=== PATIENT | female | born 1930 | race Caucasian/White ===

== ENCOUNTER → 2016-11-24 | Day surgery (SDC) | payer OTHER ==
[~2016-11-24] MED LIST: ACETAMINOPHEN 1000 MG/100 ML VIAL IV ONE; BUPIVACAINE/EPINEPHRINE 0.25% 50 ML VIAL ONE; CALC500T35 PO; IBUP-232 PO; LACTATED RINGER'S 1000 ML INJ 1,000 ML ONE; LIDOCAINE 1%/EPINEPHrine 1:100,000 SOLN 20 ML VIAL ONE; MEPERIDINE HCL 25 MG/ML VIAL ONE; MIDAZOLAM HCL 2 MG/2 ML VIAL ONE; OCUV PO; ONDANSETRON HCL 4 MG/2 ML VIAL IV PUSH ONE; POTA75TA2 PO; PROPOFOL 200 MG/20 ML AMP IV ONE; ST J81CH PO; ceFAZolin INJ 1,000 MG VIAL ONE
--- NOTE | 2016-11-24 15:30 | TN ---
cc: NIKOLAS CAMARILLO DATE OF SURGERY: 11/24/2016 PREOPERATIVE DIAGNOSIS 1. Incisional hernia in the subxiphoid area. 2. Left inguinal hernia. POSTOPERATIVE DIAGNOSIS 1. Incisional hernia in the subxiphoid area X3 2. Left inguinal hernia. 3. Small incisional hernias in the subxiphoid area x3 PROCEDURE 1. Repair of three incisional hernias x3 in the subxiphoid area. 2. Repair left inguinal hernia, Annel technique. ANESTHESIA General. SURGEON Dr. Camraillo. INDICATION This is a pleasant 86-year-old female who had a fairly symptomatic left inguinal hernia and also symptomatic subxiphoid hernia from previous surgery. Plans were made for above. PROCEDURE The patient was taken to the operating room and placed in the supine position. After anesthesia her abdomen and groin was prepped with Betadine. First we direct our attention to the subxiphoid area. She has a scar from midline incision, elliptical incision is made to remove the scar. We dissect down to subcutaneous tissue identifying about a 1 cm defect in the fascia, then just superior to this is another 1/2 cm defect and then a third defect out laterally in the subcostal area. All three of these defects are treated similarly. She did not want any mesh placed. We dissect circumferentially around identifying the fascial edges and reapproximated with a 0 Ethibond. We first do the two midline incisional hernias and these were done with 0 Ethibond, approximately five of them, and then the right subcostal we reapproximated the defect with 0 Ethibond. Deep layer was then closed with a 3-0 Vicryl and skin with 4-0 Vicryl. We then direct our attention to the left inguinal region. Oblique incision is made overlying the internal, external ring. We dissect down through Sophia's fascia identifying the external oblique aponeurosis which is incised. Her round ligament is almost nonexistent. The hernia sac is reduced into the internal ring. Using a modified Annel technique because the patient did not want any mesh placed, we reapproximate the conjoined tendon to the pubic tubercle, Alonso's ligament and the iliopubic tract out laterally, all done with interrupted Ethibond suture. A relaxing incision is then made along the medial edge of the conjoined tendon. We then close the external oblique aponeurosis with a 3-0 Vicryl, Sophia's with 3-0 Vicryl and skin with 4-0 Vicryl. Steri-Strips were applied. Sterile bandage was applied. The patient tolerated the procedure well and had no immediate postop complications. Nikolas Camarillo MD JEJ/MEIR /2:54 PM /3:19 PM [email or web address]
== END | disposition home or self-care (01) ==
LOC: ESDC 11:16
PROVIDERS: ATTEND Surgery
DX: K43.2 Incisional hernia without obstruction or gangrene (principal); K40.90 Unilateral inguinal hernia, without obstruction or gangrene, not specified as recurrent
CPT/HCPCS: 00752; 00830; 49505; 49560; J0131; J0690; J2175; J2250; J2405; J3010; J7120

== ENCOUNTER → 2017-03-23 | Outpatient (CLI) | payer OTHER ==
[~2017-03-23] MED LIST changes: -ACETAMINOPHEN 1000 MG/100 ML VIAL IV ONE; -BUPIVACAINE/EPINEPHRINE 0.25% 50 ML VIAL ONE; -LACTATED RINGER'S 1000 ML INJ 1,000 ML ONE; -LIDOCAINE 1%/EPINEPHrine 1:100,000 SOLN 20 ML VIAL ONE; -MEPERIDINE HCL 25 MG/ML VIAL ONE; -MIDAZOLAM HCL 2 MG/2 ML VIAL ONE; -ONDANSETRON HCL 4 MG/2 ML VIAL IV PUSH ONE; -PROPOFOL 200 MG/20 ML AMP IV ONE; -ceFAZolin INJ 1,000 MG VIAL ONE
--- NOTE | 2017-03-25 10:42 | RSPPFT ---
DATE OF PROCEDURE: 03/23/17 COMMENTS: VOLUMES DYNAMIC: FVC and FEV1 moderately reduced. STATIC: TLC, RV and FRC normal. FLOWS: FEV1% moderately reduced, FEF 25-75 severely reduced. DIFFUSION: Moderately reduced. FLOW VOLUME LOOP: Pattern of variable intrathoracic airways obstruction. IMPRESSION: Moderately severe obstructive ventilator defect with no significant hyperinflation. Airways resistance is increased. Diffusion is mild to moderately decreased. There is significant improvement post-bronchodilator.
== END ==
LOC: HRSP 10:27
PROVIDERS: ATTEND Internal Medicine
DX: J44.9 Chronic obstructive pulmonary disease, unspecified (principal)
CPT/HCPCS: 94620; 95012